=== PATIENT | male | born 1945 | race Caucasian/White ===

== ENCOUNTER 2018-02-16 10:30 | Outpatient (CLI) | payer MEDICARE ==
[~2018-02-16] VITALS: Ht 175.3 cm; Wt 90.7 kg
[2018-02-16] MEDS ORDERED: ASPI-999 PO (10:59)
[2018-02-16] MEDS ORDERED: HYDR-700 PO (10:59)
[2018-02-16] MEDS ORDERED: GLIP10TA13 PO (10:59)
[2018-02-16] MEDS ORDERED: SITA100T12 PO (10:59)
[2018-02-16] MEDS ORDERED: [UNRECOGNIZED DRUG - CODE] PO (10:59)
[2018-02-16] MEDS ORDERED: ATOR10TA66 PO (10:59)
[2018-02-16] MEDS ORDERED: LISI-552 PO (10:59)
[2018-02-16] MEDS ORDERED: METF10002 PO (10:59)
== END 2018-02-16 11:44 ==
LOC: PREOP 10:30
PROVIDERS: ATTEND Internal Medicine
DX: Z01.818 Encounter for other preprocedural examination (principal); Z12.11 Encounter for screening for malignant neoplasm of colon

== ENCOUNTER 2018-02-20 09:03 | Day surgery (SDC) | payer MEDICARE ==
--- NOTE | 2018-02-13 11:58 | HISTORY AND PHYSICAL ---
DATE OF SERVICE: HISTORY OF PRESENT ILLNESS: The patient is a 72-year-old white male referred by Dr. Mark Acharya for screening colonoscopy. He had one other colonoscopy done in 2003 in [place], [place]. He believes he may have had a polyp removed at that time but does not recall for sure. He is deemed to be of average risk as he is not aware of any definitive family history of colon cancer. There is a possibility that one cousin may have had colon cancer. He knows that he definitely had prostate cancer at an unknown age. Earlier this month, he did have a bout of diarrhea and did have occult positive blood. He has seen no blood in the stool. Denies dark stools and diarrhea resolved without the need for therapy. PAST MEDICAL HISTORY: Significant for type 2 diabetes mellitus, hypertension and hyperlipidemia. He reports no known history of coronary artery disease or pulmonary disease. He does report history of seasonal allergies for which he takes hydroxyzine. MEDICATIONS: Remainder of his medications include metformin 1000 mg b.i.d., glipizide ER 10 mg daily, Januvia 100 mg daily, lisinopril 20 mg daily, atorvastatin 10 mg daily, baby aspirin daily. FAMILY HISTORY: Father of complications of multiple sclerosis in his 50s. Mother at age of 82 secondary to complications of heart disease. She apparently during hospitalization after coronary artery bypass grafting. SOCIAL HISTORY: He denies any past smoking or drinking history. Still doing some farming as I recall. PHYSICAL EXAMINATION: GENERAL: Reveals a pleasant overweight white male in no acute distress. VITAL SIGNS: Weight was 277.4 pounds, blood pressure 140/80, heart rate 76 and regular. HEENT: Unremarkable. There was no overt evidence for pallor. Sclerae were nonicteric. NECK: Revealed no JVD, adenopathy or bruits. CHEST: Clear. CARDIOVASCULAR: Reveals a regular rate and rhythm without murmur, S3 or S4. ABDOMEN: Obese, nontender, bowel sounds positive. No mass or organomegaly noted. Rectal examination deferred at the time of procedure. EXTREMITIES: Reveal no cyanosis or clubbing with trace pretibial edema. ASSESSMENT: The patient was set up for screening colonoscopy on 02/20/2018. He was seen in the office on 02/09/2018. Prep instructions with Colyte were given and he is to abstain from aspirin and nonsteroidal medications in the interim. I thank you for the referral of this pleasant gentleman. Job ID: [id number] DocumentID: [id number] Dictated Date: 02/10/2018 12:00:04 Relay Man Date: 02/10/2018 12:34:27 Dictated By: BLAS POSADAS MD
[~2018-02-20] VITALS: Ht 175.3 cm; Wt 90.7 kg
[~2018-02-20 09:03] MED LIST: ASPI-999 PO; ATOR10TA66 PO; GLIP10TA13 PO; HYDR-700 PO; LISI-552 PO; METF10002 PO; SITA100T12 PO; [UNRECOGNIZED DRUG - CODE] PO
[2018-02-20] MEDS ORDERED: D5 LR IV SOLUTION 1,000 ML IV STA (09:19)
[2018-02-20] MEDS ORDERED: D5 LR IV SOLUTION 1,000 ML IV ONE (09:21)
[2018-02-20] MEDS ORDERED: LIDOCAINE JELLY 2% (XYLOCAINE) 5 ML TUBE MM PRN (09:30)
[2018-02-20 09:35] VITALS: BP 137/94
[2018-02-20] MEDS ORDERED: fentaNYL INJECTION 100 MCG/2 ML AMP ONE ×2 (09:51→10:29)
[2018-02-20] MEDS ORDERED: MIDAZOLAM 2 MG/2 ML (VERSED) VIAL ONE ×2 (09:51→10:25)
[2018-02-20] MEDS ORDERED: LIDOCAINE JELLY 2% (XYLOCAINE) 5 ML TUBE ONE (10:04)
[2018-02-20] MEDS: fentaNYL INJECTION 100 MCG/2 ML AMP IVP PRN ×3 (10:05→10:34)
[2018-02-20] MEDS: MIDAZOLAM 2 MG/2 ML (VERSED) VIAL IVP PRN ×3 (10:08→10:30)
[2018-02-20 11:05] VITALS: BP 137/80
[2018-02-20 11:50] VITALS: BP 146/90
[2018-02-20 11:57] VITALS: BP 146/90
--- NOTE | 2018-02-22 22:10 | OPERATIVE REPORT ---
DATE OF SERVICE: COLONOSCOPY SUMMARY INDICATION FOR THE PROCEDURE: Screening colonoscopy. DESCRIPTION OF PROCEDURE: The patient was placed in the left lateral decubitus position. Prior to undergoing colonoscopy, digital rectal evaluation was performed. The prostate is mildly enlarged, anodular and nontender to digital inspection. No abnormalities were noted on digital inspection of the anal canal or distal rectal vault. The colonoscope was then inserted into the rectum under direct visualization and advanced to the mid ascending colon. The entire ascending colon was visualized, but the cecum was poorly visualized as I was not able to advance beyond the mid ascending colon. This was likely complicated by severe diverticular disease. A careful inspection was made on withdrawal. The patient had an irritable bowel type response to air insufflation and colonic manipulation. This was severe diverticular disease made for a difficult examination. The quality of the prep; however, was good and visualization was good. FINDINGS: There was no evidence for internal or external hemorrhoids and the rectum was unremarkable. Confined to the sigmoid colon were multiple medium to large size diverticulum with significant haustral hypertrophy. There was no evidence to suggest acute diverticulitis. The descending colon, splenic flexure, transverse colon, hepatic flexure and ascending colon were unremarkable. As noted above, the cecum was poorly visualized. There is no evidence for blood on today's colonoscopy. ASSESSMENT: 1. Severe diverticular disease confined to the sigmoid colon was present without evidence for acute diverticulitis. 2. No evidence for neoplasia was identified; however, there is incomplete cecal inspection. 3. Mild BPH. Because the patient reportedly had a Cologuard test, which may have been positive, I will need to obtain these test results before making future surveillance versus consideration for other modes to fully evaluate the cecum. Due to the severe diverticular disease and irritable bowel type response to air insufflation, would perform any future procedures under anesthesia/Diprivan. Incidentally, a CBC was obtained as the patient was concerned about anemia. CBC was normal except for an 11% eosinophil count. No other CBC abnormalities were noted. In discussion, he does have a history of allergic rhinitis and conjunctivitis with no history or physical exam findings or colonoscopic findings to suggest a parasitic disease. I did not recommend further workup at this time unless new symptoms developed. He also has no history to suggest autoimmune disease and denies asthmatic symptomatology. I thank you for the referral of this pleasant gentleman Job ID: [id number] DocumentID: [id number] Dictated Date: 02/22/2018 13:58:28 Relief Operator Date: 02/22/2018 22:09:33 Dictated By: BLAS POSADAS MD
== END 2018-02-20 11:58 | disposition home or self-care (01) ==
LOC: ENDO 09:03
PROVIDERS: ATTEND Internal Medicine
DX: Z12.11 Encounter for screening for malignant neoplasm of colon (principal); K57.30 Diverticulosis of large intestine without perforation or abscess without bleeding; N40.0 Benign prostatic hyperplasia without lower urinary tract symptoms; E11.9 Type 2 diabetes mellitus without complications; I10 Essential (primary) hypertension; Z79.84 Long term (current) use of oral hypoglycemic drugs; Z79.899 Other long term (current) drug therapy; Z85.46 Personal history of malignant neoplasm of prostate

== ENCOUNTER 2020-11-18 17:06 | Observation (INO) | payer MEDICARE ==
[~2020-11-18] VITALS: Ht 175.3 cm; Wt 130.1 kg
[~2020-11-18 17:06] MED LIST changes: +METF-399 PO; -METF10002 PO
--- NOTE | 2020-11-18 17:25 | ED GI ---
General Stated Complaint: VOMITING;DEHYDRATION Source of Information: Patient Exam Limitations: No Limitations History of Present Illness Date Seen by Provider: Nov 18, 2020 Time Seen by Provider: 17:20 Initial Comments 75-year-old male presents by private vehicle with complaint of nausea vomiting today. States that he felt okay yesterday and he last ate last night "3 hamburgers" and went to bed feeling okay. Throughout the day today he has vomited several times and continues vomiting on arrival to the ER. States he has had some abdominal pain, although not severe and mostly upper abdominal. Denies history of ulcers. Past medical history significant for diabetes, hypertension and hypercholesterolemia. He does take a baby aspirin daily, otherwise no other blood thinners. Allergies and Home Medications Allergies Coded Allergies: No Known Drug Allergies (Unverified , 02/16/18) Home Medications Aspirin 81 Mg Tab.chew, 81 MG PO DAILY, (Reported) Atorvastatin Calcium 10 Mg Tablet, 10 MG PO HS, (Reported) Glipizide 10 Mg Tablet, 10 MG PO DAILY, (Reported) Hydroxyzine HCl 25 Mg Tablet, 25 MG PO TID PRN for INSOMNIA, (Reported) Lisinopril 20 Mg Tablet, 20 MG PO DAILY, (Reported) Metformin HCl 1,000 Mg Tablet, 1,000 MG PO BID, (Reported) Peg 3350/Na Sulf,Bicarb,Cl/KCl 4,000 Ml Soln.recon, 4,000 ML PO DIRECTED, (Reported) Sitagliptin Phosphate 100 Mg Tablet, 100 MG PO DAILY, (Reported) Patient Home Medication List Home Medication List Reviewed: Yes Review of Systems Review of Systems Constitutional: see HPI; No chills, No dizziness, No fever; malaise; No weakness EENTM: No Symptoms Reported Respiratory: No Symptoms Reported; Denies Cough, Denies Shortness of Air Cardiovascular: Denies Chest Pain, Denies Edema Gastrointestinal: Abdominal Pain; Denies Constipated, Denies Diarrhea (1 loose stool today- normal appearance); Nausea, Poor Fluid Intake (today), Vomiting Genitourinary: No Symptoms Reported Musculoskeletal: no symptoms reported Skin: no symptoms reported Psychiatric/Neurological: Denies Headache, Denies Numbness, Denies Seizure Past Qmgmnfy-Gcdbya-Yuzqno Hx Past Med/Social Hx: Reviewed Nursing Past Med/Soc Hx Patient Social History Recent Hopitalizations: No Immunizations Up To Date Date of Pneumonia Vaccine: Jul 31, 2015 Date of Influenza Vaccine: Aug 04, 2017 Seasonal Allergies Seasonal Allergies: No Past Medical History Deep Vein Thrombosis, High Cholesterol, Hypertension Reproductive Disorders: No Sexually Transmitted Disease: No HIV/AIDS: No Chronic Diarrhea Arthritis, Chronic Back Pain Loss of Vision: Left Hearing Impairment: Denies Adverse Reaction/Blood Tranf: No Physical Exam Vital Signs Vital Signs - First Documented 11/18/20 17:10 Temp 35.8 Pulse 121 Resp 18 B/P (MAP) 149/105 (120) Pulse Ox 95 O2 Delivery Room Air Capillary Refill : Height/Weight/BMI Height: 5'9.00" Weight: 200lbs. 0.0oz. 90.950498xe; 29.5 BMI Method: General Appearance: WD/WN, no apparent distress HEENT: PERRL/EOMI, normal ENT inspection Neck: non-tender, supple Respiratory: chest non-tender, lungs clear, normal breath sounds, no respiratory distress, no accessory muscle use Cardiovascular: regular rate, rhythm, no edema, no gallop, no JVD Gastrointestinal: non tender, soft; No guarding, No rebound, No tenderness Extremities: non-tender, no pedal edema Back: normal inspection, no CVA tenderness Neurologic/Psychiatric: no motor/sensory deficits, alert, normal mood/affect, oriented x 3 Skin: normal color, warm/dry Progress/Results/Core Measures Results/Orders Lab Results Laboratory Tests Test 11/18/20 17:17 Range/Units White Blood Count 24.8 H 4.3-11.0 10^3/uL Red Blood Count 5.23 4.35-5.85 10^6/uL Hemoglobin 12.9 L 13.3-17.7 G/DL Hematocrit 40 40-54 % Mean Corpuscular Volume 77 L 80-99 FL Mean Corpuscular Hemoglobin 25 25-34 PG Mean Corpuscular Hemoglobin Concent 32 32-36 G/DL Red Cell Distribution Width 18.3 H 10.0-14.5 % Platelet Count 617 H 130-400 10^3/uL Mean Platelet Volume 7.8 7.4-10.4 FL Immature Granulocyte % (Auto) 0 % Neutrophils (%) (Auto) 88 H 42-75 % Lymphocytes (%) (Auto) 5 L 12-44 % Monocytes (%) (Auto) 7 0-12 % Eosinophils (%) (Auto) 0 0-10 % Basophils (%) (Auto) 0 0-10 % Neutrophils # (Auto) 21.8 H 1.8-7.8 X 10^3 Lymphocytes # (Auto) 1.1 1.0-4.0 X 10^3 Monocytes # (Auto) 1.8 H 0.0-1.0 X 10^3 Eosinophils # (Auto) 0.0 0.0-0.3 10^3/uL Basophils # (Auto) 0.1 0.0-0.1 10^3/uL Immature Granulocyte # (Auto) 0.1 0.0-0.1 10^3/uL Neutrophils % (Manual) 76 % Lymphocytes % (Manual) 4 % Monocytes % (Manual) 9 % Eosinophils % (Manual) 0 % Basophils % (Manual) 0 % Band Neutrophils 11 % Hypochromasia 1+ Microcytosis 1+ Gastric Fluid Occult Blood POSITIVE H NEGATIVE Sodium Level 137 135-145 MMOL/L Potassium Level 4.2 3.6-5.0 MMOL/L Chloride Level 89 L 98-107 MMOL/L Carbon Dioxide Level 23 21-32 MMOL/L Anion Gap 25 H 5-14 MMOL/L Blood Urea Nitrogen 28 H 7-18 MG/DL Creatinine 1.22 0.60-1.30 MG/DL Estimat Glomerular Filtration Rate 58 BUN/Creatinine Ratio 23 Glucose Level 367 H 70-105 MG/DL Calcium Level 10.3 H 8.5-10.1 MG/DL Corrected Calcium 8.5-10.1 MG/DL Total Bilirubin 0.6 0.1-1.0 MG/DL Aspartate Amino Transf (AST/SGOT) 24 5-34 U/L Alanine Aminotransferase (ALT/SGPT) 35 0-55 U/L Alkaline Phosphatase 93 40-136 U/L Total Protein 8.1 6.4-8.2 GM/DL Albumin 4.7 H 3.2-4.5 GM/DL Lipase 33 8-78 U/L My Orders Orders - ROVENSTINEJOSE L DO Ed Iv/Invasive Line Start (11/18/20 17:18) Cbc With Automated Diff (11/18/20 17:18) Comprehensive Metabolic Panel (11/18/20 17:18) Lipase (11/18/20 17:18) Lactic Acid Analyzer (11/18/20 17:18) Abdomen Flat & Upright/Decub (11/18/20 17:18) Ns Iv 1000 Ml (Sodium Chloride 0.9%) (11/18/20 17:30) Ondansetron Injection (Zofran Injectio (11/18/20 17:30) Famotidine Injection (Pepcid Injection) (11/18/20 17:30) Pantoprazole Injection (Protonix Injecti (11/18/20 17:30) Manual Differential (11/18/20 17:17) Occult Blood,Gastric Fluid (11/18/20 17:32) Medications Given in ED Current Medications Medications Dose Ordered Sig/Ashok Route Start Time Stop Time Status Last Admin Dose Admin Famotidine 20 mg ONCE ONCE IVP 11/18/20 17:30 11/18/20 17:31 DC 11/18/20 17:26 20 MG Ondansetron HCl 4 mg ONCE ONCE IVP 11/18/20 17:30 11/18/20 17:31 DC 11/18/20 17:26 4 MG Pantoprazole 40 mg ONCE ONCE IV 11/18/20 17:30 11/18/20 17:31 DC 11/18/20 17:51 40 MG Vital Signs/I&O 11/18/20 17:10 Temp 35.8 Pulse 121 Resp 18 B/P (MAP) 149/105 (120) Pulse Ox 95 O2 Delivery Room Air Diagnostic Imaging Diagonstic Imaging: Xray Comments Date of Exam:11/18/20 ABDOMEN FLAT & UPRIGHT/DECUB REASON FOR EXAM: Epigastric pain. Hemoptysis. COMPARISON: None. TECHNIQUE: Five views of the abdomen. FINDINGS: There is marked distention of the stomach with ingested contents. No evidence of bowel obstruction. A moderate amount of stool is seen in the colon. No abnormal calcifications are present. No acute osseous abnormality is seen. IMPRESSION: 1. Marked distention of the stomach with ingested contents. Consider placement of an NG tube. 2. Moderate amount of stool in the colon, which can be seen with constipation. 3. No evidence of small bowel obstruction or large collection of free intraperitoneal air. Dictated on workstation # [id number] Dict: 11/18/20 1747 Trans: 11/18/20 1750 [facility] [id number] Interpreted by: MICHELLE HOWELL DO Electronically signed by: Departure Communication (Admissions) Time/Spoke to Admitting Phy: 18:[address] Rodriguez, accepts for OBS admission. agrees w Tx initiated, advised contacting Dr Patrick regarding Hematemesis. Time/Spoke to Consulting Phy: 18:[address] Patrick regarding pt presentation, stable VS and H/H. Will see in consultation if needed. Impression Primary Impression: Nausea and vomiting Qualified Codes: K92.0 - Hematemesis Additional Impressions: Hematemesis Qualified Codes: K92.0 - Hematemesis Food poisoning Disposition: 30 STILL A PATIENT Condition: Stable Admissions Decision to Admit Reason: Admit from ER (General) Decision to Admit/Date: Nov 18, 2020 Time/Decision to Admit Time: 18:00 Departure-Patient Inst. Referrals: JERALD CAPELLAN MD (PCP) Primary Care Physician JOSE L GUZMAN DO Nov 18, 2020 17:25
[2020-11-18 17:28] LABS: BASOPHILS % (AUTO) 0 % (0-10); EOSINOPHILS % (AUTO) 0 % (0-10); HEMATOCRIT 40 % (40-54); HEMOGLOBIN 12.9 G/DL (13.3-17.7); LYMPHOCYTES % (AUTO) 5 % (12-44); MEAN CORPUSCULAR HEMOGLOBIN 25 PG (25-34); MEAN CORPUSCULAR HGB CONC 32 G/DL (32-36); MEAN CORPUSCULAR VOLUME 77 FL (80-99); MEAN PLATELET VOLUME 7.8 FL (7.4-10.4); MONOCYTES % (AUTO) 7 % (0-12); NEUTROPHILS % (AUTO) 88 % (42-75); PLATELET COUNT 617 10^3/uL (130-400); WHITE BLOOD COUNT 24.8 10^3/uL (4.3-11.0)
[2020-11-18 17:29] LABS: BASOPHILS # (AUTO) 0.1 10^3/uL (0.0-0.1); LYMPHOCYTES # (AUTO) 1.1 X 10^3 (1.0-4.0); MONOCYTES # (AUTO) 1.8 X 10^3 (0.0-1.0); NEUTROPHILS # (AUTO) 21.8 X 10^3 (1.8-7.8)
[2020-11-18] MEDS ORDERED: ONDANSETRON 4 MG/2 ML (SDV) Z0FRAN IVP ONE ×2 (17:30→18:30)
[2020-11-18] MEDS ORDERED: NS IV 1000 ML 1,000 ML IV SCH (17:30)
[2020-11-18] MEDS ORDERED: PANTOPRAZOLE 40 MG (PROTONIX) VIAL IV ONE (17:30)
[2020-11-18] MEDS ORDERED: FAMOTIDINE 20MG/2ML IV (PEPCID) IVP ONE (17:30)
[2020-11-18 17:37] LABS: OCCULT BLOOD,GASTRIC FLUID POSITIVE (NEGATIVE)
[2020-11-18 17:45] LABS: BAND NEUTROPHILS 11 %; BASOPHILS % (MANUAL) 0 %; EOSINOPHILS % (MANUAL) 0 %; HYPOCHROMASIA 1+; LYMPHOCYTES % (MANUAL) 4 %; MICROCYTOSIS 1+; MONOCYTES % (MANUAL) 9 %; NEUTROPHILS % (MANUAL) 76 %; SODIUM 137 MMOL/L (135-145)
[2020-11-18 17:46] LABS: CARBON DIOXIDE 23 MMOL/L (21-32); CHLORIDE 89 MMOL/L (98-107); POTASSIUM 4.2 MMOL/L (3.6-5.0)
[2020-11-18 17:47] LABS: ALANINE AMINOTRANSFERASE 35 U/L (0-55); ALBUMIN 4.7 GM/DL (3.2-4.5); ALKALINE PHOSPHATASE 93 U/L (40-136); BILIRUBIN,TOTAL 0.6 MG/DL (0.1-1.0); BUN/CREATININE RATIO 23; CALCIUM 10.3 MG/DL (8.5-10.1); CREATININE SERUM 1.22 MG/DL (0.60-1.30); GFR ESTIMATED 58; GLUCOSE 367 MG/DL (70-105); LIPASE 33 U/L (8-78); TOTAL PROTEIN 8.1 GM/DL (6.4-8.2)
--- NOTE | 2020-11-18 17:50 | Diagnostic Imaging Report ---
REASON FOR EXAM: Epigastric pain. Hemoptysis. COMPARISON: None. TECHNIQUE: Five views of the abdomen. FINDINGS: There is marked distention of the stomach with ingested contents. No evidence of bowel obstruction. A moderate amount of stool is seen in the colon. No abnormal calcifications are present. No acute osseous abnormality is seen. IMPRESSION: 1. Marked distention of the stomach with ingested contents. Consider placement of an NG tube. 2. Moderate amount of stool in the colon, which can be seen with constipation. 3. No evidence of small bowel obstruction or large collection of free intraperitoneal air. Dictated by: Dictated on workstation # [id number]
[2020-11-18] MEDS ORDERED: CIPROFLOXACIN IV 400MG/200ML 200 ML IV ONE (18:30)
--- NOTE | 2020-11-18 19:45 | NUR ---
SHERRI GUTIERREZ admitted to room 412-1, with an admitting diagnosis of NAUSEA AND VOMITING, HEMATEMESIS, SUSPECT FOOD POISONING, on 11/18/20 from [facility] via EMS, accompanied by cell changer .SHERRI GUTIERREZ introduced to surroundings, call light, bed controls, phone, TV, temperature control, lights, meal times, smoking policy, visitor policy, side rail policy, bathrooms and showers. Patient Rights given to patient in the handbook. SHERRI GUTIERREZ verbalizes understanding that [facility] is not responsible for the loss or damage to any personal effects or valuables that are kept in the patients posession during their hospitalization. The following Patient Care Plans were discussed with the Discharge Planning,. SHERRI GUTIERREZ verbalizes understanding of Interdisciplinary Patient Education. Patient and/or family were informed about the Rapid Response Team and its purpose.
[2020-11-18] MEDS ORDERED: NS IV 1000 ML 1,000 ML ONE (19:49)
[2020-11-18] MEDS ORDERED: ONDANSETRON 4 MG/2 ML (SDV) Z0FRAN IVP PRN ×2 (20:30)
[2020-11-18] MEDS ORDERED: CALCIUM CARBONATE 500 MG (TUMS) TAB.CHEW PO PRN (20:30)
[2020-11-18] MEDS ORDERED: ALPRAZolam 0.25 MG (XANAX) TAB PO PRN (20:30)
[2020-11-18] MEDS ORDERED: MELATONIN 3 MG TABLET PO PRN (20:30)
[2020-11-18] MEDS ORDERED: fentaNYL INJECTION 100 MCG/2 ML AMP IVP PRN (20:30)
[2020-11-18] MEDS ORDERED: diphenhydrAMINE 25 MG TAB (BENADRYL) PO PRN (20:30)
[2020-11-18] MEDS ORDERED: HYDROcodone/APAP 5 MG/325 MG (LORTAB) TAB PO PRN (20:30)
[2020-11-18] MEDS ORDERED: ACETAMINOPHEN 500 MG TAB (TYLENOL) PO PRN (20:30)
[2020-11-18] MEDS ORDERED: METOCLOPRAMIDE INJ 10 MG/2 ML (REGLAN) IVP PRN (20:30)
[2020-11-18] MEDS ORDERED: PROMETHAZINE INJ 25 MG/ML (PHENERGAN) AMP IM PRN (20:30)
[2020-11-18] MEDS ORDERED: ENOXAPARIN 40 MG/0.4 ML (LOVENOX) SYR SC SCH (20:30)
[2020-11-18] MEDS: NS IV 1000 ML 1,000 ML IV SCH (21:14)
[2020-11-18] MEDS: inSUlin ASPART (NovoLOG) 1 UNIT/0.01 ML (CHARGE PER UNIT) SC SCH (21:33)
--- NOTE | 2020-11-19 00:31 | NUR ---
PATIENT REPORTS THAT HE IS FEELING MUCH BETTER. THIS NURSE UPDATED PATIENT THAT HE HAS ORDERS TO BE NPO AT MIDNIGHT AND PATIENT REFUSES, STATING THAT "WHATEVER IS WRONG WITH ME IS NOT AN EMERGENCY AND I AM NOT HAVING ANYMORE TESTING DONE. I NEED WATER FOR MY THROAT BECAUSE OF THAT THING THEY TRIED TO STICK DOWN MY THROAT". DR CRESPO NOTIFIED THAT PATIENT IS REFUSING TO BE NPO. PATIENT DID AGREE TO HAVE LAB WORK DONE IN THE MORNING IF ORDERED.
[2020-11-19 00:32] VITALS: BP 122/63
[2020-11-19 03:58] VITALS: BP 121/68
[2020-11-19] MEDS: inSUlin ASPART (NovoLOG) 1 UNIT/0.01 ML (CHARGE PER UNIT) SC SCH (05:32)
[2020-11-19] MEDS ORDERED: CIPROFLOXACIN 400 MG/D5W 200 ML (PRE-MIX) IV SCH (06:30)
[2020-11-19] MEDS: NS IV 1000 ML 1,000 ML IV SCH (06:32)
[2020-11-19] MEDS ORDERED: FLU QUAD HIGH DOSE 240 MCG/0.7 ML 2020-21 (FLUZONE) IM ONE (07:30)
[2020-11-19 07:33] LABS: ALBUMIN 3.7 GM/DL (3.2-4.5)
[2020-11-19 07:35] LABS: CALCIUM 8.7 MG/DL (8.5-10.1)
[2020-11-19 07:36] LABS: TOTAL PROTEIN 6.5 GM/DL (6.4-8.2)
[2020-11-19 07:38] LABS: BILIRUBIN,TOTAL 0.6 MG/DL (0.1-1.0)
[2020-11-19 07:40] LABS: CREATININE SERUM 1.18 MG/DL (0.60-1.30)
[2020-11-19 08:00] VITALS: BP 130/64
[2020-11-19] MEDS ORDERED: PANTOPRAZOLE 40 MG (PROTONIX) VIAL IV SCH (09:00)
--- NOTE | 2020-11-19 11:57 | Short Stay Summary-Hospitalist ---
History of Present Illness HPI/Chief Complaint CC: Gastroenteritis HPI: Patient left AMA before seen by this examiner Source: RN/MD Date Seen 11/19/20 Time Seen by a Provider: 00:00 Attending Physician Ximena Rodriguez DO PCP Marck,Mark FERGUSON Referring Physician Date of Admission Nov 18, 2020 at 19:30 Home Medications & Allergies Home Medications Reviewed patient Home Medication Reconciliation performed by pharmacy medication reconciliations fire control technician b and/or nursing. Patients Allergies have been reviewed. Allergies Allergies Coded Allergies No Known Drug Allergies (Unverified02/16/18) Past Egxxkin-Nxoyez-Napjok Hx Past Med/Social Hx: Reviewed Nursing Past Med/Soc Hx, Reviewed and Corrections made Patient Social History Alcohol Use: Denies Use Recreational Drug Use: No Smoking Status: Former Smoker 2nd Hand Smoke Exposure: No Recent Foreign Travel: No Contact w/other who traveled: No Recent Hopitalizations: No Recent Infectious Disease Expo: No Immunizations Up To Date Date of Pneumonia Vaccine: Jul 31, 2015 Date of Influenza Vaccine: Aug 04, 2017 Seasonal Allergies Seasonal Allergies: No Past Medical History Cardiac: Deep Vein Thrombosis, High Cholesterol, Hypertension Reproductive: No Sexually Transmitted Disease: No HIV/AIDS: No Gastrointestinal: Chronic Diarrhea Musculoskeletal: Arthritis, Chronic Back Pain Loss of Vision: Left Hearing Impairment: Denies History of Blood Disorders: No Adverse Reaction to Blood Becker: No Review of Systems Constitutional: see HPI Physical Exam Physical Exam Vital Signs Vital Signs - First Documented 11/18/20 17:10 Temp 35.8 Pulse 121 Resp 18 B/P (MAP) 149/105 (120) Pulse Ox 95 O2 Delivery Room Air Capillary Refill : Less Than 3 Seconds Height, Weight, BMI Height: 5'9.00" Weight: 200lbs. 0.0oz. 90.759358oa; 42.33 BMI Method: General Appearance: Other Results Results/Procedures Labs Laboratory Tests 11/18/20 17:17 11/19/20 07:13 Patient resulted labs reviewed. Short Stay Diagnosis Discharge Diagnosis-Short Stay Admission Diagnosis Gastroenteritis Final Discharge Diagnosis Gastroenteritis Conclusion Plan Left AMA Clinical Quality Measures DVT/VTE Risk/Contraindication: Contraindications-Pharm: Other *list below* Other: XIMENA Sawyer DO Nov 19, 2020 11:57
--- NOTE | 2020-11-20 13:56 | NUR ---
Received dietary consult for MST score. Note pt has discharged at this time. Olive Coffman, MS RD LD
== END 2020-11-19 09:27 | disposition left against medical advice (07) ==
LOC: EDUNIT# 17:06 → ER FS 17:08 → 4TH 19:30 → UNDOADMOB 19:30 → 4TH 19:45 → UNDODISOB 11-19 09:27
PROVIDERS: ADMIT Internal Medicine; ATTEND Internal Medicine
DX: K52.9 Noninfective gastroenteritis and colitis, unspecified (principal); I10 Essential (primary) hypertension; E78.00 Pure hypercholesterolemia, unspecified; G89.29 Other chronic pain; M54.9 Dorsalgia, unspecified; M19.90 Unspecified osteoarthritis, unspecified site; I82.409 Acute embolism and thrombosis of unspecified deep veins of unspecified lower extremity; Z79.82 Long term (current) use of aspirin; Z79.899 Other long term (current) drug therapy; Z87.891 Personal history of nicotine dependence
CPT/HCPCS: 36415; 74019; 80053 ×2; 82271; 82962 ×2; 83690; 85007; 85027; 96374; 96375; 96376; 99284; G0378

== ENCOUNTER 2021-07-08 10:13 | Emergency (ER) | payer MEDICARE ==
[~2021-07-08] VITALS: Ht 175.2 cm; Wt 136.0 kg
[~2021-07-08 10:13] MED LIST changes: -LISI-552 PO; +LISI20TA26 PO
--- NOTE | 2021-07-08 10:21 | ED General ---
General Chief Complaint: General Problems/Pain Stated Complaint: POSS ANEMIA Source of Information: Patient History of Present Illness Date Seen by Provider: Jul 08, 2021 Time Seen by Provider: 10:18 Initial Comments 76 yo male presenting with complaints of worsening cough, weakness, nausea, shortness of breath. He was seen on Friday by Dr. Acharya in the clinic in 2 3 had a hemoglobin of 9.0. He is referred to hematology Mcdonough to be seen about the same told that he may need transfusion. He had continued to feel worse since then and decided to come to the emergency department today. Patient reports that the last time he felt this way he came to the ER and was given IV fluids and "that helped a lot." He has had nausea but no vomiting. His abdomen is bloated and slightly distended. He has been having regular bowel movements and had one just prior to coming to the ED. He has been having dark-colored stools because he has been taking iron pills twice a day. He had an EGD and colonoscopy in March when he was in [place] and they did not see anything abnormal on his colonoscopy. He did have an ulcer which was healed on the repeat EGD. He denies having any blood in his urine or pain or burning when he goes to urinate. Associated Systoms: No Chest Pain; Cough; No Diaphoresis, No Fever/Chills, No Headaches; Malaise, Nausea/Vomiting (Nausea but no vomiting); No Seizure; Shortness of Air; No Syncope; Weakness (Generalized) Allergies and Home Medications Allergies Coded Allergies: No Known Drug Allergies (Unverified , 02/16/18) Patient Home Medication List Home Medication List Reviewed: Yes Aspirin (Aspirin) 81 Mg Tab.chew, 81 MG PO DAILY, (Reported) Entered as Reported by: CHRISTY HARRIS on 02/16/18 1059 Atorvastatin Calcium (Atorvastatin Calcium) 10 Mg Tablet, 10 MG PO HS, (Reported) Entered as Reported by: CHRISTY HARRIS on 02/16/18 1059 Glipizide (Glipizide) 10 Mg Tablet, 10 MG PO DAILY, (Reported) Entered as Reported by: CHRISTY HARRIS on 02/16/18 1059 Hydroxyzine HCl (Hydroxyzine HCl) 25 Mg Tablet, 25 MG PO TID PRN for INSOMNIA, (Reported) Entered as Reported by: CHRISTY HARRIS on 02/16/18 1059 Lisinopril (Lisinopril) 20 Mg Tablet, 20 MG PO DAILY, (Reported) Entered as Reported by: CHRISTY HARRIS on 02/16/18 1059 Metformin HCl (Metformin HCl) 1,000 Mg Tablet, 1,000 MG PO BID, (Reported) Entered as Reported by: CHRISTY HARRIS on 02/16/18 1059 Peg 3350/Na Sulf,Bicarb,Cl/KCl (Peg 3350 Electrolyte Soln) 4,000 Ml Soln.recon, 4,000 ML PO DIRECTED, (Reported) Entered as Reported by: CHRISTY HARRIS on 02/16/18 105 Sitagliptin Phosphate (Januvia) 100 Mg Tablet, 100 MG PO DAILY, (Reported) Entered as Reported by: CHRISTY HARRIS on 02/16/18 1059 Review of Systems Review of Systems Constitutional: see HPI EENTM: no symptoms reported Respiratory: see HPI, cough, dyspnea on exertion, wheezing Cardiovascular: No chest pain; edema Gastrointestinal: see HPI, nausea; No vomiting Genitourinary: no symptoms reported Musculoskeletal: no symptoms reported Skin: no symptoms reported Psychiatric/Neurological: Weakness (Generalized) Past Vcodnvc-Cnmctk-Jtabvk Hx Seasonal Allergies Seasonal Allergies: No Past Medical History Surgeries: Yes (HEMORRHOIDECTOMY) Respiratory: No Cardiac: Yes Deep Vein Thrombosis, High Cholesterol, Hypertension Neurological: No Reproductive Disorders: No Sexually Transmitted Disease: No HIV/AIDS: No Gastrointestinal: Yes Chronic Diarrhea Musculoskeletal: No Arthritis, Chronic Back Pain Endocrine: Yes Loss of Vision: Left Hearing Impairment: Denies Cancer: No Psychosocial: No Integumentary: No Blood Disorders: No Adverse Reaction/Blood Tranf: No Physical Exam Vital Signs Vital Signs - First Documented 07/08/21 07/08/21 10:21 13:50 Temp 35.8 Pulse 89 Resp 25 B/P (MAP) 151/49 (83) Pulse Ox 94 O2 Delivery Room Air O2 Flow Rate 2.00 Capillary Refill : Height, Weight, BMI Height: 5'9.00" Weight: 200lbs. 0.0oz. 90.282270dl; 42.33 BMI Method: General Appearance: Chronically ill, Moderate Distress (Appears winded and to not feel well), Obese HEENT: PERRL/EOMI, Pharynx Normal Neck: Full Range of Motion, Supple Respiratory: Chest Non Tender, Accessory Muscle Use, Decreased Breath Sounds, Wheezing Cardiovascular: Regular Rate, Rhythm, Normal Peripheral Pulses Gastrointestinal: Normal Bowel Sounds, No Pulsatile Mass, Non Tender, Soft Extremity: Normal Capillary Refill, Pedal Edema (1+ pitting edema bilateral lower extremities) Neurologic/Psychiatric: Alert, Oriented x3, forging press setter up II-XII Norm as Tested Skin: Warm/Dry Focused Exam Lactate Level 07/08/21 10:23: Lactic Acid Level 2.85*H 07/08/21 12:50: Lactic Acid Level 2.66*H Lactic Acid Level Laboratory Tests Test 07/08/21 10:23 07/08/21 12:50 Lactic Acid Level 2.85 MMOL/L (0.50-2.00) *H 2.66 MMOL/L (0.50-2.00) *H Progress/Results/Core Measures Suspected Sepsis SIRS Temperature: Pulse: Respiratory Rate: Laboratory Tests 07/08/21 10:23: White Blood Count 14.3H Blood Pressure / Mean: 07/08/21 10:23: Lactic Acid Level 2.85*H 07/08/21 12:50: Lactic Acid Level 2.66*H Laboratory Tests 07/08/21 10:23: Creatinine 0.66, INR Comment 0.9, Platelet Count 483H, Total Bilirubin 0.5 Results/Orders Lab Results Laboratory Tests Test 07/08/21 10:23 07/08/21 12:15 07/08/21 12:50 Range/Units White Blood Count 14.3 H 4.3-11.0 10^3/uL Red Blood Count 4.27 L 4.30-5.52 10^6/uL Hemoglobin 9.3 L 13.3-17.7 g/dL Hematocrit 30 L 40-54 % Mean Corpuscular Volume 70 L 80-99 fL Mean Corpuscular Hemoglobin 22 L 25-34 pg Mean Corpuscular Hemoglobin Concent 31 L 32-36 g/dL Red Cell Distribution Width 21.9 H 10.0-14.5 % Platelet Count 483 H 130-400 10^3/uL Mean Platelet Volume 7.5 L 9.0-12.2 fL Immature Granulocyte % (Auto) 1 % Neutrophils (%) (Auto) 61 42-75 % Lymphocytes (%) (Auto) 8 L 12-44 % Monocytes (%) (Auto) 9 0-12 % Eosinophils (%) (Auto) 19 H 0-10 % Basophils (%) (Auto) 1 0-10 % Neutrophils # (Auto) 8.8 H 1.8-7.8 X 10^3 Lymphocytes # (Auto) 1.2 1.0-4.0 X 10^3 Monocytes # (Auto) 1.4 H 0.0-1.0 X 10^3 Eosinophils # (Auto) 2.7 H 0.0-0.3 10^3/uL Basophils # (Auto) 0.1 0.0-0.1 10^3/uL Immature Granulocyte # (Auto) 0.1 0.0-0.1 10^3/uL Neutrophils % (Manual) 75 % Lymphocytes % (Manual) 8 % Monocytes % (Manual) 2 % Eosinophils % (Manual) 15 % Toxic Granulation 1+ Polychromasia SLIGHT Hypochromasia MODERATE Poikilocytosis MODERATE Microcytosis MARKED Tear Drop Cells SLIGHT Elliptocytes SLIGHT Prothrombin Time 12.6 12.2-14.7 SEC INR Comment 0.9 0.8-1.4 Activated Partial Thromboplast Time 31 24-35 SEC Sodium Level 114 *L 135-145 MMOL/L Potassium Level 4.9 3.6-5.0 MMOL/L Chloride Level 79 L 98-107 MMOL/L Carbon Dioxide Level 25 21-32 MMOL/L Anion Gap 10 5-14 MMOL/L Blood Urea Nitrogen 8 7-18 MG/DL Creatinine 0.66 0.60-1.30 MG/DL Estimat Glomerular Filtration Rate 117 BUN/Creatinine Ratio 12 Glucose Level 149 H 70-105 MG/DL Lactic Acid Level 2.85 *H 2.66 *H 0.50-2.00 MMOL/L Calcium Level 8.5 8.5-10.1 MG/DL Corrected Calcium 8.7 8.5-10.1 MG/DL Magnesium Level 1.6 1.6-2.4 MG/DL Total Bilirubin 0.5 0.1-1.0 MG/DL Aspartate Amino Transf (AST/SGOT) 26 5-34 U/L Alanine Aminotransferase (ALT/SGPT) 21 0-55 U/L Alkaline Phosphatase 109 40-136 U/L Troponin I < 0.30 <0.30 NG/ML Pro-B-Type Natriuretic Peptide 146.2 H <75.0 PG/ML Total Protein 6.4 6.4-8.2 GM/DL Albumin 3.8 3.2-4.5 GM/DL Lipase 21 8-78 U/L Urine Color YELLOW Urine Clarity CLEAR Urine pH 8.0 5-9 Urine Specific [place] 1.015 L 1.016-1.022 Urine Protein NEGATIVE NEGATIVE Urine Glucose (UA) NEGATIVE NEGATIVE Urine Ketones NEGATIVE NEGATIVE Urine Nitrite NEGATIVE NEGATIVE Urine Bilirubin NEGATIVE NEGATIVE Urine Urobilinogen 2.0 < = 1.0 MG/DL Urine Leukocyte Esterase NEGATIVE NEGATIVE Urine RBC (Auto) TRACE-I NEGATIVE Urine RBC 10-25 H /HPF Urine WBC 0-2 /HPF Urine Squamous Epithelial Cells 0-2 /HPF Urine Crystals NONE /LPF Urine Bacteria FEW H /HPF Urine Casts NONE /LPF Urine Mucus MODERATE H /LPF Urine Culture Indicated YES My Orders Orders - LOKI STAUFFER MD Cbc With Automated Diff (07/08/21 10:36) Magnesium (07/08/21 10:36) Chest 1 View Ap/Pa Only (07/08/21 10:36) Ekg Tracing (07/08/21 10:36) Comprehensive Metabolic Panel (07/08/21 10:36) Protime With Inr (07/08/21 10:36) Partial Thromboplastin Time (07/08/21 10:36) O2 (07/08/21 10:36) Monitor-Rhythm Ecg Trace Only (07/08/21 10:36) Ed Iv/Invasive Line Start (07/08/21 10:36) Lipase (07/08/21 10:36) Troponin I Fs (07/08/21 10:36) Probnp Fs (07/08/21 10:36) Ct Abdomen/Pelvis Wo (07/08/21 10:36) Fecal Occult Bedside (07/08/21 10:36) Ns Iv 1000 Ml (Sodium Chloride 0.9%) (07/08/21 10:40) Ondansetron Injection (Zofran Injectio (07/08/21 10:40) Lactic Acid Analyzer (07/08/21 10:40) Manual Differential (07/08/21 10:23) Blood Culture (07/08/21 11:05) Ua Culture If Indicated (07/08/21 11:05) Ns Iv 1000 Ml (Sodium Chloride 0.9%) (07/08/21 11:58) Ceftriaxone (Rocephin) (07/08/21 11:58) Azithromycin Injection (Zithromax Inject (07/08/21 11:58) O2 (07/08/21 11:58) Urine Culture (07/08/21 12:15) Vital Signs/I&O 07/08/21 07/08/21 10:21 13:50 Temp 35.8 35.8 Pulse 89 89 Resp 25 21 B/P (MAP) 151/49 (83) 156/76 Pulse Ox 94 98 O2 Delivery Room Air Nasal Cannula O2 Flow Rate 2.00 Capillary Refill : Progress Note #1: Progress Note Digital rectal exam performed and stool is dark in color from him taking iron but Hemoccult was negative. Will check labs to look at his electrolytes and blood count as well as cardiac enzymes. Obtain a lactic acid since he had abdominal bloating and distention with nausea to look for bowel ischemia. Chest x-ray to look for recurrent pneumonia or fluid buildup. We will try some IV fluids for hydration while waiting on other testing. Progress Note #2: Progress Note Labs show elevated lactic acid to 2.85. His white blood cell count is elevated to 14.3 thousand. His hemoglobin is stable at 9.3 compared to the hemoglobin of 9 reported from Friday. His chemistry shows hyponatremia with a sodium of 114. No prior recent sodium to compare to but in October his sodium was 133. Coags and cardiac enzymes were nonelevated. His urinalysis had a small blood and few bacteria with mucus which triggered a reflexive culture. He had no nitrites or leukocyte esterase. He had bilateral lower lobe infiltrate on chest x-ray and on CT it showed pleural effusion bilaterally and unable to rule out infiltrate. He had no acute significant normality in his abdomen to account for his distended belly. He did have some findings for portal hypertension which may be contributing to his edema and pleural effusions. Will start patient on antibiotics for potential pneumonia and after the initial liter bolus of normal saline will continue at 75 mils an hour. Discussed with patient about need for admission to help raise his sodium as the sodium at that level he is at risk of seizures, nausea, weakness, vomiting, neurologic compromise. We will have him hold the furosemide as well. Patient is agreeable to admission but refused transport an ambulance because he said that it hurt his back too much. He voiced understanding that he had his oxygen level dropping without supplemental oxygen and has sodium needed to be replaced with the fluid to help bring it up and without doing so he was at risk of seizures and neurologic compromise. Despite this he still refused ambulance transport and was going to go by private vehicle with his family. 1108 no beds available at [place] [facility] pending discharge of patients that it could be nighttime for a bed will be available, if then. 1145 [facility] also had no bed for admits pending discharge of patients. 1240 [facility] did have a bed available so will contact Dr. Rodriguez to see if she would accept pt for admit to [place]. Initially when called Dr. Rodriguez she was occupied and had to call me back. 1255 Dr. Rodriguez accepted pt for transfer to [facility]. ECG Initial ECG Impression Date: Jul 08, 2021 Initial ECG Impression Time: 10:34 Initial ECG Rate: 83 Initial ECG Rhythm: Normal Sinus Initial ECG Comparisson: No Previous ECG Available Comment Normal sinus rhythm with heart rate of 83 bpm. AL interval 190 ms. Right bundle branch block with a left anterior fascicular block. QT interval 412 ms with a QTc interval [address] elevation. No prior tracing available for comparison. Diagnostic Imaging Diagonstic Imaging: Xray Plain Films/CT/US/NM/MRI: chest Comments [facility]. [place], [place] NAME: SHERRI GUTIERREZ [facility] REC#: [id number] PT STATUS: DEP ER : 1945 PHYSICIAN: LOKI STAUFFER MD ADMIT DATE: 07/08/21/ER FS Signed Date of Exam:07/08/21 CHEST 1 VIEW AP/PA ONLY Clinical Indications: Patient with cough and shortness of breath. Exam: Portable chest x-ray upright view. Comparisons: None. Findings: Pulmonary vasculature is mildly congested. Cardiac silhouette is within normal limits for a portable projection. There is amorphous airspace opacities in both lung bases which may represent lung infiltrates. There are degenerative spurs involving the spine. IMPRESSION: 1: There are mild airspace opacities in both lung bases concerning for lung infiltrates. 2: There is mild pulmonary vascular congestion. Cardiac silhouette is not enlarged. Dictated by: Dictated on workstation # [id number] Dict: 07/08/21 1115 Trans: 07/08/211749 [facility] [id number] Interpreted by: JENNIFER ISLAS MD Electronically signed by: JENNIFER ISLAS MD 07/08/211749 Reviewed: Reviewed by Me Diagonstic Imaging: CT Plain Films/CT/US/NM/MRI: abdomen, pelvis Comments [facility]. [place], [place] NAME: SHERRI GUTIERREZ [facility] REC#: [id number] PT STATUS: DEP ER : 1945 PHYSICIAN: LOKI STAUFFER MD ADMIT DATE: 07/08/21/ER FS Signed Date of Exam:07/08/21 CT ABDOMEN/PELVIS WO CLINICAL INDICATION: Patient with bloating, nausea and dark stools. EXAM: Axial CT scan of the abdomen and pelvis performed without IV or enteric contrast. Sagittal and coronal reformatted images were created. COMPARISON: X-ray of the abdomen dated 11/18/2020. FINDINGS: There is a small to moderate-sized right pleural effusion and a small left pleural effusion. There is mild bibasilar atelectasis. Superimposed infiltrates in the lung bases cannot be completely excluded. There are degenerative spurs involving the bilateral acetabular region. There are hypertrophic spurs involving the visualized lower thoracic spine and lumbar spine. There is lower lumbar spine facet arthropathy. There is a lobulated contour to the liver surface. There is enlargement of the caudate lobe which can be seen with liver cirrhosis. There is no liver mass seen. The main portal vein is enlarged measuring 1.8 cm and this may be seen with portal hypertension. The spleen is unremarkable. The pancreas and adrenal glands show no significant abnormality. Both kidneys show no stone or mass. There is no hydronephrosis. Suspected small left parapelvic cysts. The gallbladder is unremarkable. There is no intra-abdominal free air or free fluid. There is no lymphadenopathy. The bladder is partially fluid-filled with no gross abnormality. There is dystrophic calcification involving the prostate gland. Prostate gland is otherwise unremarkable. There is diverticulosis involving the sigmoid colon, descending colon, transverse colon, and descending colon. There is no significant findings to suggest diverticulitis. There is mild fat stranding in the lower abdominal region and along the paracolic gutters bilaterally which is nonspecific. There is a small amount of stool throughout the colon. There is a curvilinear structure seen posterior to the cecum with amorphous thickening, but does not appear tubular in the amorphous thickened area. There may be lymph nodes, fluid or vessel in the region. The appendix is difficult to accurately delineate. A small fat-containing umbilical hernia. There is a small amount of fat stranding seen distal to the cecum. The appendix is not visualized. Extraabdominal and extrapelvic soft tissue structures show no other significant abnormality. There is no intestinal obstruction. There are no dilated loops of small bowel or colon. There is no intra-abdominal free air. IMPRESSION: 1: Liver findings concerning for cirrhosis. There is no gross mass seen. There is enlargement of the portal vein which may be seen with portal hypertension. The spleen is normal in size. 2: There is mild nonspecific fat stranding/minimal fluid in the lower and mid abdominal regions which is nonspecific. 3: The appendix is not well delineated on this exam. There is amorphous density near a curvilinear area posterior to the cecum. Unknown if this represents lymph nodes, vessel and/or appendix. Clinical correlation for pain in this region is suggested. Unable to appropriately evaluate appendix on this exam. If there is concern for appendicitis, then repeat CT scan of the abdomen and pelvis with rectal contrast would better evaluate. 4: Diverticulosis with no CT evidence of diverticulitis. 5: There are bilateral pleural effusions with bibasilar atelectasis versus infiltrates. Dictated by: Dictated on workstation # [id number] Dict: 07/08/21 1117 Trans: 07/08/211742 [facility] [id number] Interpreted by: JENNIFER ISLAS MD Electronically signed by: JENNIFER ISLAS MD 07/08/21 5591 Reviewed: Reviewed by Nj Departure Impression Primary Impression: Hyponatremia Additional Impressions: Bilateral pulmonary infiltrates on chest x-ray Bilateral pleural effusion Chronic anemia Disposition: 02 XFER SHT-TRM HOSP Condition: Stable Transfer Transfer Reason: Diversion (No beds available for admit at [facility]) Time Spoke to Accepting Phy: 12:54 Transfer Progress Notes d/w Dr. Rodriguez and she accepted pt to help with his hyponatremia which is likely causing nausea and weakness with fatigue. Antibiotics started for possible pneumonia based on inflitrates and effusion in bases of lungs along with mild hypoxia that he will occasionally drop to 89-90% on room air. Transfer Facility: [facility] Method of Transfer: Private Vehicle Departure-Patient Inst. Referrals: JERALD ACHARYA MD (PCP/Family) Primary Care Physician LOKI STAUFFER MD Jul 08, 2021 10:21
[2021-07-08] MEDS ORDERED: NS IV 1000 ML 1,000 ML IV STA ×2 (10:40→11:58)
[2021-07-08] MEDS ORDERED: ONDANSETRON 4 MG/2 ML (SDV) Z0FRAN IVP STA (10:40)
[2021-07-08 10:43] LABS: BASOPHILS % (AUTO) 1 % (0-10); EOSINOPHILS % (AUTO) 19 % (0-10); HEMATOCRIT 30 % (40-54); HEMOGLOBIN 9.3 g/dL (13.3-17.7); INR 0.9 (0.8-1.4); LYMPHOCYTES % (AUTO) 8 % (12-44); MEAN CORPUSCULAR HEMOGLOBIN 22 pg (25-34); MEAN CORPUSCULAR HGB CONC 31 g/dL (32-36); MEAN CORPUSCULAR VOLUME 70 fL (80-99); MEAN PLATELET VOLUME 7.5 fL (9.0-12.2); MONOCYTES % (AUTO) 9 % (0-12); NEUTROPHILS # (AUTO) 8.8 X 10^3 (1.8-7.8); NEUTROPHILS % (AUTO) 61 % (42-75); PLATELET COUNT 483 10^3/uL (130-400); PROTHROMBIN TIME PATIENT 12.6 SEC (12.2-14.7); WHITE BLOOD COUNT 14.3 10^3/uL (4.3-11.0)
[2021-07-08 10:44] LABS: BASOPHILS # (AUTO) 0.1 10^3/uL (0.0-0.1); EOSINOPHILS # (AUTO) 2.7 10^3/uL (0.0-0.3); LYMPHOCYTES # (AUTO) 1.2 X 10^3 (1.0-4.0); MONOCYTES # (AUTO) 1.4 X 10^3 (0.0-1.0)
[2021-07-08 10:47] LABS: ALBUMIN 3.8 GM/DL (3.2-4.5); BILIRUBIN,TOTAL 0.5 MG/DL (0.1-1.0); CALCIUM 8.5 MG/DL (8.5-10.1); CREATININE SERUM 0.66 MG/DL (0.60-1.30); MAGNESIUM 1.6 MG/DL (1.6-2.4); POTASSIUM 4.9 MMOL/L (3.6-5.0); TOTAL PROTEIN 6.4 GM/DL (6.4-8.2)
[2021-07-08 11:03] LABS: ELLIPT/OVALOCYTES SLIGHT; EOSINOPHILS % (MANUAL) 15 %; HYPOCHROMASIA MODERATE; LYMPHOCYTES % (MANUAL) 8 %; MICROCYTOSIS MARKED; MONOCYTES % (MANUAL) 2 %; NEUTROPHILS % (MANUAL) 75 %; POIKILOCYTOSIS MODERATE; POLYCHROMASIA SLIGHT; TEAR DROP CELLS SLIGHT; TOXIC GRANULATION/VACUOLAZATIO 1+
--- NOTE | 2021-07-08 11:24 | Diagnostic Imaging Report ---
Clinical Indications: Patient with cough and shortness of breath. Exam: Portable chest x-ray upright view. Comparisons: None. Findings: Pulmonary vasculature is mildly congested. Cardiac silhouette is within normal limits for a portable projection. There is amorphous airspace opacities in both lung bases which may represent lung infiltrates. There are degenerative spurs involving the spine. IMPRESSION: 1: There are mild airspace opacities in both lung bases concerning for lung infiltrates. 2: There is mild pulmonary vascular congestion. Cardiac silhouette is not enlarged. Dictated by: Dictated on workstation # [id number]
--- NOTE | 2021-07-08 11:39 | Diagnostic Imaging Report ---
CLINICAL INDICATION: Patient with bloating, nausea and dark stools. EXAM: Axial CT scan of the abdomen and pelvis performed without IV or enteric contrast. Sagittal and coronal reformatted images were created. COMPARISON: X-ray of the abdomen dated 11/18/2020. FINDINGS: There is a small to moderate-sized right pleural effusion and a small left pleural effusion. There is mild bibasilar atelectasis. Superimposed infiltrates in the lung bases cannot be completely excluded. There are degenerative spurs involving the bilateral acetabular region. There are hypertrophic spurs involving the visualized lower thoracic spine and lumbar spine. There is lower lumbar spine facet arthropathy. There is a lobulated contour to the liver surface. There is enlargement of the caudate lobe which can be seen with liver cirrhosis. There is no liver mass seen. The main portal vein is enlarged measuring 1.8 cm and this may be seen with portal hypertension. The spleen is unremarkable. The pancreas and adrenal glands show no significant abnormality. Both kidneys show no stone or mass. There is no hydronephrosis. Suspected small left parapelvic cysts. The gallbladder is unremarkable. There is no intra-abdominal free air or free fluid. There is no lymphadenopathy. The bladder is partially fluid-filled with no gross abnormality. There is dystrophic calcification involving the prostate gland. Prostate gland is otherwise unremarkable. There is diverticulosis involving the sigmoid colon, descending colon, transverse colon, and descending colon. There is no significant findings to suggest diverticulitis. There is mild fat stranding in the lower abdominal region and along the paracolic gutters bilaterally which is nonspecific. There is a small amount of stool throughout the colon. There is a curvilinear structure seen posterior to the cecum with amorphous thickening, but does not appear tubular in the amorphous thickened area. There may be lymph nodes, fluid or vessel in the region. The appendix is difficult to accurately delineate. A small fat-containing umbilical hernia. There is a small amount of fat stranding seen distal to the cecum. The appendix is not visualized. Extraabdominal and extrapelvic soft tissue structures show no other significant abnormality. There is no intestinal obstruction. There are no dilated loops of small bowel or colon. There is no intra-abdominal free air. IMPRESSION: 1: Liver findings concerning for cirrhosis. There is no gross mass seen. There is enlargement of the portal vein which may be seen with portal hypertension. The spleen is normal in size. 2: There is mild nonspecific fat stranding/minimal fluid in the lower and mid abdominal regions which is nonspecific. 3: The appendix is not well delineated on this exam. There is amorphous density near a curvilinear area posterior to the cecum. Unknown if this represents lymph nodes, vessel and/or appendix. Clinical correlation for pain in this region is suggested. Unable to appropriately evaluate appendix on this exam. If there is concern for appendicitis, then repeat CT scan of the abdomen and pelvis with rectal contrast would better evaluate. 4: Diverticulosis with no CT evidence of diverticulitis. 5: There are bilateral pleural effusions with bibasilar atelectasis versus infiltrates. Dictated by: Dictated on workstation # [id number]
[2021-07-08] MEDS ORDERED: AZITHROMYCIN INJECTION 500 MG in NS (IVPB) 250 ML IV STA (11:58)
[2021-07-08] MEDS ORDERED: cefTRIAXone 1,000 MG in WATER (STERILE) FOR INJECTION 10 ML IV STA (11:58)
[2021-07-08 12:24] LABS: BACTERIA,URINE FEW /HPF; BILIRUBIN,URINE NEGATIVE (NEGATIVE); CLARITY,URINE CLEAR; COLOR,URINE YELLOW; GLUCOSE, URINE (UA) NEGATIVE (NEGATIVE); KETONES,URINE NEGATIVE (NEGATIVE); LEUKOCYTE ESTERASE ,URINE NEGATIVE (NEGATIVE); NITRITE,URINE NEGATIVE (NEGATIVE); PROTEIN,URINE NEGATIVE (NEGATIVE); SQUAMOUS EPITHELIAL CELL,UR 0-2 /HPF; WBC,URINE 0-2 /HPF
[2021-07-08 13:50] VITALS: BP 156/76
== END 2021-07-08 13:49 | disposition short-term general hospital (02) ==
LOC: EDUNIT# 10:13 → ER FS 10:15
DX: E87.1 Hypo-osmolality and hyponatremia (principal); R91.8 Other nonspecific abnormal finding of lung field; J90 Pleural effusion, not elsewhere classified; D64.9 Anemia, unspecified; E66.9 Obesity, unspecified; I10 Essential (primary) hypertension; E78.00 Pure hypercholesterolemia, unspecified; Z68.41 Body mass index [BMI] 40.0-44.9, adult; Z79.82 Long term (current) use of aspirin; Z79.899 Other long term (current) drug therapy
CPT/HCPCS: 36415; 71045; 74176; 80053; 81000; 82274; 83605; 83690; 83735; 83880; 84484; 85007; 85027; 85610; 85730; 87040; 87088; 93005; 93041

== ENCOUNTER 2021-07-16 13:36 | Outpatient (RCR) | payer MEDICARE ==
[2021-07-16 13:58] LABS: BASOPHILS # (AUTO) 0.1 10^3/uL (0.0-0.1); BASOPHILS % (AUTO) 1 % (0-10); EOSINOPHILS # (AUTO) 2.8 10^3/uL (0.0-0.3); EOSINOPHILS % (AUTO) 26 % (0-10); HEMATOCRIT 34 % (40-54); HEMOGLOBIN 9.7 g/dL (13.3-17.7); LYMPHOCYTES # (AUTO) 1.4 10^3/uL (1.0-4.0); LYMPHOCYTES % (AUTO) 13 % (12-44); MEAN CORPUSCULAR HEMOGLOBIN 22 pg (25-34); MEAN CORPUSCULAR HGB CONC 29 g/dL (32-36); MEAN CORPUSCULAR VOLUME 77 fL (80-99); MEAN PLATELET VOLUME 7.4 fL (9.0-12.2); MONOCYTES # (AUTO) 1.2 10^3/uL (0.0-1.0); MONOCYTES % (AUTO) 12 % (0-12); NEUTROPHILS # (AUTO) 5.1 10^3/uL (1.8-7.8); NEUTROPHILS % (AUTO) 48 % (42-75); PLATELET COUNT 238 10^3/uL (130-400); WHITE BLOOD COUNT 10.6 10^3/uL (4.3-11.0)
[2021-07-16 14:23] LABS: ALBUMIN 3.6 GM/DL (3.2-4.5); BILIRUBIN,TOTAL 0.4 MG/DL (0.1-1.0); CREATININE SERUM 0.81 MG/DL (0.60-1.30); POTASSIUM 4.6 MMOL/L (3.6-5.0); TOTAL PROTEIN 6.2 GM/DL (6.4-8.2)
== END 2021-10-14 | disposition home or self-care (01) ==
LOC: ONC 13:36
PROVIDERS: ATTEND Internal Medicine Hematology & Oncology
DX: D50.9 Iron deficiency anemia, unspecified (principal); J18.9 Pneumonia, unspecified organism; E66.9 Obesity, unspecified; K25.9 Gastric ulcer, unspecified as acute or chronic, without hemorrhage or perforation
CPT/HCPCS: 80053; 82728; 83540; 83550; 85025; G0463; 99214

== ENCOUNTER → 2021-07-17 | Outpatient (CLI) | payer MEDICARE ==
[~2021-07-17] MED LIST changes: +CATHETER FLUSH 10 ML SYR IV PRN
--- NOTE | 2021-07-17 12:12 | Diagnostic Imaging Report ---
INDICATION: Shortness of breath. COMPARISON: Study interpreted in correlation with frontal chest x-ray dated 07/08/2021. FINDINGS: Perfusion imaging was performed following the intravenous administration of 5.5 mCi technetium 99m MAA. Multi-obliquity planar imaging then performed. There is symmetrical perfusion to the lungs with no segmental or subsegmental defect. There were no scintigraphic findings of PE. IMPRESSION: This is a normal nuclear medicine perfusion lung scan. Dictated by: Dictated on workstation # [id number]
== END ==
LOC: CARD 09:43
PROVIDERS: ATTEND Internal Medicine
DX: J90 Pleural effusion, not elsewhere classified (principal)
CPT/HCPCS: 78580; A9540